=== PATIENT | female | born 1945 | race Caucasian/White ===

== ENCOUNTER → 2018-07-09 16:15 | Outpatient (CLI) | payer MEDICARE, OTHER, SELFPAY ==
--- NOTE | 2018-07-09 16:23 | US_ITS ---
STUDY: SUPERFICIAL ULTRASOUND - PAROTID GLAND. REASON FOR EXAM: Female, 73 years old. Left parotid swelling. TECHNIQUE: A superficial ultrasound was performed with real-time and static mehta-scale imaging. COMPARISON: None. FINDINGS: The left parotid gland measures 5.6 cm x 5.2 size by 2.7 cm. Within it, there is a 4.6 cm x 4.2 cm x 2.7 cm hypoechoic mass with increased vascularity. A neoplastic process should BE ruled out. The right parotid gland measures 4.7 cm x 2.4 cm x 1.2 cm. 2 cysts are seen within it. The largest measures 1.9 cm x 1.3 cm x 1 cm. US/Head/Neck Soft Tissue IMPRESSION: Enlargement of the left parotid gland with a 4.6 cm x 4.2 cm x 2.7 cm hypoechoic solid nodule with increased vascularity. Biopsy is recommended. Electronically Signed: Peter Gonsales MD at 12:41 EST , Service support ,
== END ==
PROVIDERS: Referring Provider Otolaryngology; Visit Provider Otolaryngology
DX: D11.0 Benign neoplasm of parotid gland (principal)
CPT/HCPCS: 76536

== ENCOUNTER → 2018-07-15 16:20 | Outpatient (CLI) | payer MEDICARE, OTHER, SELFPAY ==
--- NOTE | 2018-07-15 | FLU_PTH ---
PATIENT: LUZ ELENA CARDENAS LOC: [id number]#:[id number] AGE/SX: 79/F ROOM: RE07/15/[address]: Dr. Matthieu Montaño MD : 1945 BED: DIS: SPEC #: [id number] RECD: 07/15/18 17:47 STATUS: KONSTANTIN IDALIA #: [id number] CHRIS: 07/15/18 00:[address]: Matthieu Montaño DEPT: CYTOLOGY RECD BY: Hernandez Graham ENTERED: 07/16/18 11:58 SP TYPE: Fluid OTHR DR: No Primary Care Phys Tissues: Parotid gland, NOS Procedures: Special Stain Group II Surgery Specimen Level IV Cytospin Fluid HEADER OPERATION: Thyroid FNA PRE-OP DIAGNOSIS: Benign neoplasm of salivary gland TISSUE SUBMITTED: FNA, left parotid mass, fluid for cytology DIAGNOSIS CYTOLOGY Parotid mass, fine needle aspiration, cytology and cell block: Benign oncocytic parotid neoplasm. 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 Benign oncocytoma is also a possible consideration. CE:rg 07/17/18 COMMENT Case has been reviewed in consultation with Dr. Carlos who concurs with the above diagnosis. IDC:[facility]J CYTOLOGY STUDY Slides are reviewed. CYTOLOGY GROSS Received is 37 ml of clear red fluid labeled with the patient's name and and designated per the requisition as parotid mass. Submitted for cytology preparation including cell block. / 07/16/18 TC:1 CPT: 62158, 76579
== END ==
PROVIDERS: Referring Provider Otolaryngology; Visit Provider Otolaryngology
DX: D11.9 Benign neoplasm of major salivary gland, unspecified (principal)
CPT/HCPCS: 88108; 88305; 88313

== ENCOUNTER 2020-07-26 08:47 | Outpatient (RCR) | payer MEDICARE, OTHER, SELFPAY ==
[2020-07-26] MEDS: COVID-19 VACC, MRNA(PFIZER)/PF 30 MCG/0.3 ML SYRINGE IM (13:06)
[2020-08-17] MEDS: COVID-19 VACC, MRNA(PFIZER)/PF 30 MCG/0.3 ML SYRINGE IM (10:15)
== END 2020-10-26 23:59 ==
LOC: IMMUN 08:47
PROVIDERS: Visit Provider Family Medicine
DX: Z23 Encounter for immunization (principal)
CPT/HCPCS: 0001A; 0002A; 91300

== ENCOUNTER → 2021-05-04 | Outpatient (CLI) | payer MEDICARE, OTHER, SELFPAY ==
[2021-05-04 18:05] LABS: Bacteria 0 SEEN /hpf (None Seen); Mucous, Urine 0 SEEN /hpf (<or=2+); Red Blood Cells-Urine 0 SEEN /hpf (0-5); Squamous Epithelial Cells - UA 0 SEEN /hpf (5-10)
[2021-05-04 18:10] LABS: Color, Urine Straw (Yellow); Glucose, Dipstick Normal (Normal); Ketone-Dipstick Negative (Negative); Leukocyte Esterase-Dipstick 100 /ul (Negative); Nitrite-Dipstick Negative (Negative); Occult Blood-Urine 10 /ul (Negative); Protein-Dipstick Negative (Negative); Urine Bilirubin Dipstick Negative (Negative); Urine Clarity Clear (Clear); Urine Urobilinogen Normal (Normal)
[2021-05-04 18:17] LABS: White Blood Cells 0-5 SEEN /hpf (0-5)
== END | disposition home or self-care (01) ==
LOC: LABSPEC 18:04
PROVIDERS: Visit Provider Physician Assistant
DX: N39.0 Urinary tract infection, site not specified (principal); R30.9 Painful micturition, unspecified
CPT/HCPCS: 81001; 87086

== ENCOUNTER → 2022-03-20 | Outpatient (CLI) | payer MEDICARE, OTHER, SELFPAY ==
[2022-03-20 10:13] LABS: Bacteria 0 SEEN /hpf (None Seen); Mucous, Urine 0 SEEN /hpf (<or=2+); Red Blood Cells-Urine 0 SEEN /hpf (0-5); Squamous Epithelial Cells - UA 0 SEEN /hpf (5-10); White Blood Cells 0 SEEN /hpf (0-5)
[2022-03-20 10:30] LABS: Color, Urine Yellow (Yellow); Glucose, Dipstick Normal (Normal); Ketone-Dipstick Negative (Negative); Leukocyte Esterase-Dipstick 25 /ul (Negative); Nitrite-Dipstick Negative (Negative); Occult Blood-Urine Negative /ul (Negative); Protein-Dipstick Negative (Negative); Urine Bilirubin Dipstick Negative (Negative); Urine Clarity Clear (Clear); Urine Urobilinogen Normal (Normal)
== END | disposition home or self-care (01) ==
LOC: LABSPEC 09:58
PROVIDERS: Visit Provider Physician Assistant Medical
DX: N39.0 Urinary tract infection, site not specified (principal)
CPT/HCPCS: 81001; 87086; 87088